=== PATIENT | female | born 1940 | race Caucasian/White ===

== ENCOUNTER 2021-02-20 10:31 | Emergency (ER) | payer MEDICARE, BC ==
[2021-02-20 11:12] VITALS: BP 107/67; PULSE 70
--- NOTE | 2021-02-20 12:24 | EDM.PDOC ---
ED HPI GENERAL MEDICAL PROBLEM - General Stated Complaint: SOB/HIGH HR Time Seen by Provider: 02/20/21 10:35 Source of Information: Reports: Patient, Family History Limitations: Reports: No Limitations - History of Present Illness INITIAL COMMENTS - FREE TEXT/NARRATIVE: c/o palpitations at [facility], felt her heart racing, felt quite weak, no cp/sob, had difficulty walking to car, had explosives truck driver her 2 miles to ED, said she was sure she was in afib HR 115-120 with normal BP on arrival, in afib with HR 112 on initial EKG only cardiac meds: Eliquis, flecainide 100 mg qhs saw shot lighter in [facility] 2m ago and told to "keep a pill in the pocket", took flecainide last night but did not take a second one here pt with SR 82 on EKG 8 minutes after initial EKG, meds not given, however repeat EKG another 9 minutes later showed rate of 76 yet back into irregular rhythm of afib h/o of afib, ablation twice, most recently 09/13, had loop recorder placed 1y ago, was called to [facility] recently as she was told the battery did not seem to be working, however they told her that she had been in SR the past yr, pt however disagreed as she thought she had been in afib at times pt with inc'd sob x 2m, intermittent, was in office 1d ago with c/o sob and palpitations yet had NSR and was told to continue her meds CxR 1v with prelim ED read shows hyperinflated lungs with very flat diaphragms altho no h/o smoking, 1st did smoke, no definite HF BNP 3x ULN here, no comparison, pt denies prior h/o afib - Related Data Allergies Allergy/AdvReac Type Severity Reaction Status Date / Time No Known Allergies Allergy Verified 02/20/16 14:43 Home Meds: Home Meds Apixaban [Eliquis] 5 mg PO BIDMEALS 02/20/16 [History] Calcium 600mg 600 mg PO BIDMEALS 02/20/16 [History] Cholecalciferol (Vitamin D3) [Vitamin D3] 1,000 unit PO DAILY 02/20/16 [History] FLUoxetine [PROzac] 20 mg PO DAILY 02/20/16 [History] Levothyroxine 88 mcg PO ACBREAKFAST 02/20/16 [History] Multivit-Min/FA/Lycopen/Lutein [Centrum Silver Tablet] 1 tab PO DAILY 02/20/16 [History] Multivitamin with Minerals [Hair, Skin and Nails] 1 tab PO DAILY 02/20/16 [History] atorvaSTATin [Lipitor] 10 mg PO ASDIRECTED 02/20/16 [History] traZODone 50 mg PO BEDTIME 02/20/16 [History] Lutein/Min/Vit C/Vit E Acetate [Ocuvite Lutein] 1 cap PO DAILY 02/20/21 [History ] Magnesium Chloride [Magnesium] 64 mg PO DAILY 02/20/21 [History] Past Medical History HEENT History: Reports: Cataract, Impaired Vision Cardiovascular History: Reports: Afib, High Cholesterol Gastrointestinal History: Reports: Hemorrhoids, Irritable Bowel Syndrome Other Gastrointestinal History: has had rectal bleeding since November 2015, thought was from hemorrhoids [employer] History: Reports: Musculoskeletal History: Reports: Osteoporosis Psychiatric History: Reports: Anxiety, Depression Endocrine/Metabolic History: Reports: Hypothyroidism - Infectious Disease History Infectious Disease History: Reports: Measles - Past Surgical History HEENT Surgical History: Reports: Cataract Surgery Other HEENT Surgeries/Procedures: bilat cataract Cardiovascular Surgical History: Reports: Cardiac Ablation Other Cardiovascular Surgeries/Procedures: ablation November 2015 Female Surgical History: Reports: Tubal Ligation Musculoskeletal Surgical History: Reports: None Dermatological Surgical History: Reports: Plastic Surgical Reconstruction/Repair Social & Family History - Tobacco Use Tobacco Use Status *Q: Never Tobacco User - Recreational Drug Use Recreational Drug Use: No ED ROS GENERAL - Review of Systems Review Of Systems: See Below Constitutional: Reports: No Symptoms HEENT: Reports: No Symptoms Respiratory: Reports: Shortness of Breath Cardiovascular: Reports: Dyspnea on Exertion, Palpitations. Denies: Chest Pain Endocrine: Reports: No Symptoms GI/Abdominal: Reports: No Symptoms : Reports: No Symptoms Musculoskeletal: Reports: No Symptoms Skin: Reports: No Symptoms Neurological: Reports: No Symptoms Psychiatric: Reports: No Symptoms Hematologic/Lymphatic: Reports: No Symptoms Immunologic: Reports: No Symptoms ED EXAM, GENERAL - Physical Exam Exam: See Below Exam Limited By: No Limitations General Appearance: Alert, WD/WN, No Apparent Distress Nose: Normal Inspection Throat/Mouth: Normal Inspection Head: Atraumatic Neck: Normal Inspection, Supple, Non-Tender, Full Range of Motion Respiratory/Chest: Lungs Clear, Normal Breath Sounds, Chest Non-Tender, Other (anxious, mild tachypnea, lungs clear, symmetric) Cardiovascular: No Edema, No Gallop, No JVD, No Rub, Other (irreg irreg, 2/6 BERNARDO at [facility], quiet precordium) GI/Abdominal: Soft, Non-Tender, No Distention Back Exam: Normal Inspection, Full Range of Motion Extremities: Normal Inspection, Normal Range of Motion, Non-Tender, No Pedal Edema Neurological: Alert, Oriented, CN II-XII Intact, Normal Cognition, No Motor/Sensory Deficits Psychiatric: Normal Affect, Normal Mood Skin Exam: Warm, Dry, Intact, Normal Color, No Rash Lymphatic: No Adenopathy Course - Vital Signs Last Recorded V/S: Last Vital Signs Temp 36.0 C L 02/20/21 11:05 Pulse 70 02/20/21 11:05 Resp 17 02/20/21 11:05 BP 107/67 02/20/21 11:05 Pulse Ox 100 02/20/21 11:05 - Orders/Labs/Meds Orders: Active Orders 24 hr Category Date Time Status EKG Documentation Completion [RC] ASDIRECTED Care 02/20/21 10:44 Ordered EKG Documentation Completion [RC] ASDIRECTED Care 02/20/21 10:47 Ordered Chest 2V [CR] Stat Exams 02/20/21 10:43 Ordered URINALYSIS W/MICROSCOPIC [UA W/MICROSCOPIC] [URIN] Stat Lab 02/20/21 10:44 Ordered EKG 12 Lead [EK] Routine Ther 02/20/21 10:44 Ordered EKG 12 Lead [EK] Routine Ther 02/20/21 10:46 Ordered Labs: Laboratory Tests 02/20/21 02/20/21 02/20/21 Range/Units 10:55 10:55 10:55 WBC 5.2 (3.0-10.3) x10-3/uL RBC 4.55 (3.60-5.20) x10(6)uL Hgb 14.1 (11.4-15.5) g/dL Hct 42.8 (34.2-48.2) % MCV 94.1 (76.7-100.5) fL MCH 31.1 (23.9-33.9) pg MCHC 33.0 (31.9-34.8) g/dL RDW 13.6 (12.3-16.5) % Plt Count 208 (151-488) x10(3)uL MPV 7.7 (7.1-12.4) fL Neut % (Auto) 72.1 (30.8-76.2) % Lymph % (Auto) 18.0 L (18.4-52.1) % [place] % (Auto) 8.5 (4.4-15.7) % Eos % (Auto) 0.9 (0.6-8.1) % Baso % (Auto) 0.5 (0.2-1.5) % Neut # (Auto) 3.8 (1.5-6.3) x10-3/uL Lymph # (Auto) 0.9 L (1.0-4.4) x10-3/uL [place] # (Auto) 0.4 (0.3-1.0) x10-3/uL Eos # (Auto) 0.0 (0.0-0.8) x10-3/uL Baso # (Auto) 0.0 (0.0-0.1) x10-3/uL Sodium 140 (135-145) mmol/L Potassium 4.5 (3.5-5.3) mmol/L Chloride 103 (100-110) mmol/L Carbon Dioxide 25 (21-32) mmol/L BUN 17 (7-18) mg/dL Creatinine 1.2 H (0.55-1.02) mg/dL Est Cr Clr Drug Dosing TNP Estimated GFR (MDRD) 43 L (>60) BUN/Creatinine Ratio 14.2 (9-20) Glucose 145 H (80-116) mg/dL Calcium 8.4 L (8.6-10.2) mg/dL Magnesium (1.8-2.5) mg/dL Total Bilirubin 0.6 (0.1-1.3) mg/dL AST 12 (5-25) IU/L ALT 17 (12-36) U/L Alkaline Phosphatase 58 (56-112) IU/L Troponin I 8.4 (4.0-60.3) pg/mL C-Reactive Protein < 0.2 L (0.5-0.9) mg/dL NT-Pro-B Natriuret Pep 1576 H* (<=450) pg/mL Total Protein 6.8 (6.0-8.0) g/dL Albumin 4.0 (3.2-4.6) g/dL Globulin 2.8 g/dL Albumin/Globulin Ratio 1.4 TSH, Ultra Sensitive (0.36-3.74) IU/mL 02/20/21 02/20/21 Range/Units 10:55 10:55 WBC (3.0-10.3) x10-3/uL RBC (3.60-5.20) x10(6)uL Hgb (11.4-15.5) g/dL Hct (34.2-48.2) % MCV (76.7-100.5) fL MCH (23.9-33.9) pg MCHC (31.9-34.8) g/dL RDW (12.3-16.5) % Plt Count (151-488) x10(3)uL MPV (7.1-12.4) fL Neut % (Auto) (30.8-76.2) % Lymph % (Auto) (18.4-52.1) % [place] % (Auto) (4.4-15.7) % Eos % (Auto) (0.6-8.1) % Baso % (Auto) (0.2-1.5) % Neut # (Auto) (1.5-6.3) x10-3/uL Lymph # (Auto) (1.0-4.4) x10-3/uL [place] # (Auto) (0.3-1.0) x10-3/uL Eos # (Auto) (0.0-0.8) x10-3/uL Baso # (Auto) (0.0-0.1) x10-3/uL Sodium (135-145) mmol/L Potassium (3.5-5.3) mmol/L Chloride (100-110) mmol/L Carbon Dioxide (21-32) mmol/L BUN (7-18) mg/dL Creatinine (0.55-1.02) mg/dL Est Cr Clr Drug Dosing Estimated GFR (MDRD) (>60) BUN/Creatinine Ratio (9-20) Glucose (80-116) mg/dL Calcium (8.6-10.2) mg/dL Magnesium 1.7 L (1.8-2.5) mg/dL Total Bilirubin (0.1-1.3) mg/dL AST (5-25) IU/L ALT (12-36) U/L Alkaline Phosphatase (56-112) IU/L Troponin I (4.0-60.3) pg/mL C-Reactive Protein (0.5-0.9) mg/dL NT-Pro-B Natriuret Pep (<=450) pg/mL Total Protein (6.0-8.0) g/dL Albumin (3.2-4.6) g/dL Globulin g/dL Albumin/Globulin Ratio TSH, Ultra Sensitive 2.50 (0.36-3.74) IU/mL - Re-Assessments/Exams Free Text/Narrative Re-Assessment/Exam: 02/20/21 12:42 d/w Dr Uribe at [facility], hospitalist, who accepted pt at 12:12p [facility] has assigned a bed, EMS to arrive shortly pt agrees to transfer may need pul consult as well as CV consult last echo done 2m ago in the office of Sara GAONA shot lighter, records requested and over 100 pages are currently being printed on our fax echo 4y ago here with EF 55-60%, normal LV diastolic function, mod tricuspid regurg pt stable, was given lung, asxs currently, initial trop neg on further review of [place], pt did have a BNP 5y ago that was 3x ULN Departure - Departure Time of Disposition: 12:40 Disposition: DC/Tfer to Acute Hospital 02 Reason for Transfer *Q: Other Condition: Good Clinical Impression: Palpitations, Atrial fibrillation with RVR, Renal insufficiency, Elevated brain natriuretic peptide (BNP) level, Dyspnea on exertion, Hyperinflation of lungs, Mild dehydration, Ketonuria, Hypomagnesemia Sepsis Event Note (ED) - Evaluation Sepsis Screening Result: No Definite Risk - Focused Exam Vital Signs: Vital Signs Temp Pulse Resp BP Pulse Ox 02/20/21 11:05 36.0 C L 70 17 107/67 100 - My Orders Last 24 Hours: My Active Orders 02/20/21 10:43 Chest 2V [CR] Stat 02/20/21 10:44 EKG Documentation Completion [RC] ASDIRECTED URINALYSIS W/MICROSCOPIC [UA W/MICROSCOPIC] [URIN] Stat EKG 12 Lead [EK] Routine 02/20/21 10:46 EKG 12 Lead [EK] Routine 02/20/21 10:47 EKG Documentation Completion [RC] ASDIRECTED - Assessment/Plan Last 24 Hours: My Active Orders 02/20/21 10:43 Chest 2V [CR] Stat 02/20/21 10:44 EKG Documentation Completion [RC] ASDIRECTED URINALYSIS W/MICROSCOPIC [UA W/MICROSCOPIC] [URIN] Stat EKG 12 Lead [EK] Routine 02/20/21 10:46 EKG 12 Lead [EK] Routine 02/20/21 10:47 EKG Documentation Completion [RC] ASDIRECTED
[2021-02-20] MEDS ORDERED: Flecainide 100 MG Tab PO ONE (12:29)
[2021-02-20] MEDS ORDERED: Magnesium Sulfate/Water 2 GM in Premix Bag 1 BAG IV ONE (12:31)
--- NOTE | 2021-02-20 17:18 | CR ---
CHEST TWO VIEWS [id number] INDICATION: Short of breath, in atrial fibrillation on arrival, sinus rhythm now. PA and lateral views of the chest were compared with 02/26/2016 and 02/22/2016 revealing the heart to appear enlarged, possibly with left ventricular enlargement specifically. The aorta is somewhat tortuous with minimal calcification in the arch. A loop recorder is noted near the left ventricle. Overlying EKG leads are noted. Findings compatible with COPD are noted. There are some fibrotic strands noted in both lung bases, more prominently on the right with blunting of the right posterior sulcus, likely on the basis of fibrosis, although a very minimal pleural effusion is difficult to entirely exclude. A definite active infiltrate or effusion was not identified. Dextroconcave scoliosis at the thoracolumbar spine is noted. IMPRESSION: 1. 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 2. ASHD, possibly with left ventricular enlargement. 3. Loop recorder. 4. Scoliosis. 5. COPD. MTDD
== END 2021-02-20 13:05 ==
LOC: FB.ED 10:31
DX: I48.91 Unspecified atrial fibrillation (principal); E78.00 Pure hypercholesterolemia, unspecified; N28.9 Disorder of kidney and ureter, unspecified; R79.89 Other specified abnormal findings of blood chemistry; E86.0 Dehydration; R82.4 Acetonuria; R31.9 Hematuria, unspecified; J98.11 Atelectasis; E03.9 Hypothyroidism, unspecified; E83.42 Hypomagnesemia; Z79.01 Long term (current) use of anticoagulants; Z79.899 Other long term (current) drug therapy
CPT/HCPCS: 36415; 71046; 80053; 83735; 83880; 84443; 84484; 85025; 86140; 93005; 96365; 99285; A9270; J3475